=== PATIENT | male | born 1965 | race Caucasian/White ===

== ENCOUNTER 2022-05-17 08:24 | Emergency (ER) | payer OTHER, SELFPAY ==
[2022-05-17 08:39] VITALS: BP 105/93; PULSE 84; RESP 20; TEMP 36.6; O2SAT 100
--- NOTE | 2022-05-17 09:04 | ED.URI ---
HPI - URI/Sore Throat General Chief Complaint: Upper Respiratory Infection Stated Complaint: Headache,Shortness of Breath Time Seen by Provider: 05/17/22 08:50 Source: patient Mode of arrival: ambulatory Limitations: no limitations History of Present Illness HPI Narrative: Patient presents today complaining of 2-day history of cough, headache, scratchy throat, rhinorrhea. Symptoms began after he returned home from an [facility] cruise. His has tested positive for COVID-19, as have several people on his cruise. He tested positive for COVID-19 2 days ago at home, but needed to come in today for documentation for work. States most of his symptoms have resolved, but his headache has persisted. Denies chest pain or shortness of breath. He has been taking Excedrin and drinking a lot of coffee for his headache without relief. He is a smoker. He has had his COVID-19 vaccines. Related Data Home Medications Medication Instructions Recorded Confirmed No Home Medications 05/17/22 05/17/22 Allergies Allergy/AdvReac Type Severity Reaction Status Date / Time No Known Allergies Allergy Verified 05/17/22 08:56 Review of Systems Review of Systems: CONSTITUTIONAL: Denies body aches, fever, chills, or sweats. EYES: Denies visual changes, redness, or discharge. ENT: Denies rhinorrhea, congestion, sore throat, or otalgia. CARDIOVASCULAR: Denies chest pain, palpitations, or edema. RESPIRATORY: Denies cough or dyspnea. GASTROINTESTINAL: Denies abdominal pain, nausea, vomiting, or diarrhea. GENITOURINARY: Denies dysuria or hematuria. SKIN: Denies rash, itching, or wounds. MUSCULOSKELETAL: Denies back pain, joint pain, or myalgia. NEUROLOGIC: Denies numbness, tingling, or weakness.+ Headache PSYCH: Denies depression or anxiety. [facility] Family History Family History Mother Hypertension Father Family history of lymphoma, Onset Age: 39 Social History Social History Smoking status: Current every day smoker Alcohol intake: never Comments At time of signature, I have reviewed and agree with nursing past medical, surgical, social and family history unless otherwise noted. Please see nursing chart for further information. There is no relevant family history pertinent to the presenting complaint Exam Narrative: GENERAL: Well-appearing, well-nourished, and in no acute distress. HEAD: Normocephalic, atraumatic. EYES: EOMI. No redness or drainage. Conjunctivae normal. ENT: Mucous membranes pink and moist. Nares clear. No rhinorrhea. TMs normal bilaterally. Throat normal. Uvula midline. NECK: Normal AROM. Supple. No lymphadenopathy. CHEST: No respiratory distress. Clear to auscultation. HEART: Regular rate and rhythm. No murmur appreciated. Normal peripheral pulses. EXTREMITIES: Normal range of motion. No edema. SKIN: Warm, dry, no rash. Capillary refill normal. Normal skin turgor. NEURO: No focal deficits. Alert and oriented x3. Gait steady. PSYCH: Normal affect. No signs of depression or anxiety. Course Course Level of Care: Express Care Visit Vital Signs Vital signs: Vital Signs Temperature 97.8 F 05/17/22 08:39 Pulse Rate 84 05/17/22 08:39 Respiratory Rate 20 05/17/22 08:39 Blood Pressure 105/93 H 05/17/22 08:39 Pulse Oximetry 100 05/17/22 08:39 Oxygen Delivery Room Air 05/17/22 08:39 Temperature 97.8 F 05/17/22 08:39 Pulse Rate 84 05/17/22 08:39 Respiratory Rate 20 05/17/22 08:39 Blood Pressure 105/93 H 05/17/22 08:39 Pulse Oximetry 100 05/17/22 08:39 Oxygen Delivery Room Air 05/17/22 08:39 Reviewed MDM - URI/Sore Throat Differential Diagnosis Differential diagnosis: Likely upper respiratory infection, viral infection, pharyngitis and other (COVID-19) Critical Care Time Critical Care Time Critical Care Time: No Discharge Plan Discha
== END 2022-05-17 09:12 | disposition home or self-care (01) ==
PROVIDERS: Emergency Provider Nurse Practitioner
DX: U07.1 COVID-19 (principal); F17.200 Nicotine dependence, unspecified, uncomplicated
CPT/HCPCS: 99202; G0463

== ENCOUNTER 2022-11-12 08:20 | Emergency (ER) | payer OTHER, SELFPAY ==
[2022-11-12 08:31] VITALS: BP 99/87; PULSE 97; RESP 16; TEMP 36.4; O2SAT 100
--- NOTE | 2022-11-12 08:48 | ED.URI ---
HPI - URI/Sore Throat General Chief Complaint: Upper Respiratory Infection Stated Complaint: villagomez/body aches Time Seen by Provider: 11/12/22 08:48 Source: patient and RN notes reviewed Mode of arrival: ambulatory Limitations: no limitations History of Present Illness HPI Narrative: 57-year-old male presented for complaint of headache and body aches, onset yesterday morning. Endorses temperature up to 100 this morning. He took Excedrin migraine for symptoms. He endorses influenza going around his work. He currently denies cough, shortness of breath, wheezing, sore throat, sinus congestion, nausea, vomiting, diarrhea. MD elicited complaint: cough Related Data Home Medications Medication Instructions Recorded Confirmed No Home Medications 05/17/22 11/12/22 Allergies Allergy/AdvReac Type Severity Reaction Status Date / Time No Known Allergies Allergy Verified 11/12/22 08:45 Review of Systems Review of Systems: Per HPI [facility] Family History Family History Mother Hypertension Father Family history of lymphoma, Onset Age: 39 Social History Social History Smoking status: Current every day smoker Alcohol intake: never Exam Narrative: GENERAL: Ill-appearing, nontoxic EYES: PERRLA, conjunctivae clear ENT: Mucous membranes moist. TMs pearly tafoya with dull light reflex bilaterally; no tragal tenderness. Oropharynx erythematous without lesions or exudate CHEST: Clear to auscultation, breath sounds equal. No wheezing, rhonchi, rales, or stridor. No respiratory distress, speaks in full sentences. HEART: Regular rate and rhythm. No murmur heard. SKIN: Warm, dry, no rash. NEURO: Alert and oriented x3. PSYCH: Normal mood and affect Course Course Emergency Course: Patient is aware of diagnosis, understands and agrees to treatment plan. Anticipatory guidance given. Patient agrees to follow-up as directed and is aware of reasons to seek care at the emergency department. Portions of this record may have been created with voice recognition software Level of Care: Express Care Visit Vital Signs Vital signs: Vital Signs Temperature 97.5 F L 11/12/22 08:31 Pulse Rate 97 11/12/22 08:31 Respiratory Rate 16 11/12/22 08:31 Blood Pressure 99/87 L 11/12/22 08:31 Pulse Oximetry 100 11/12/22 08:31 Oxygen Delivery Room Air 11/12/22 08:31 Temperature 97.5 F L 11/12/22 08:31 Pulse Rate 97 11/12/22 08:31 Respiratory Rate 16 11/12/22 08:31 Blood Pressure 99/87 L 11/12/22 08:31 Pulse Oximetry 100 11/12/22 08:31 Oxygen Delivery Room Air 11/12/22 08:31 reviewed MDM - URI/Sore Throat MDM Narrative Medical decision making narrative: COVID and flu negative. Results reviewed with patient. Advised supportive measures and signs/symptoms to go to the ER. Pt is appropriate for outpt treatment and f/u. Differential Diagnosis Differential diagnosis: Likely upper respiratory infection, sinusitis and viral infection Lab Data Labs: Influenza A Screen Negative Reference Range: Negative Influenza B Screen Negative Reference Range: Negative Discharge Plan Discharge Clinical Impression: Viral infection Patient Disposition: Home, Self-Care Condition: Stable Instructions: Viral Syndrome (ED) Additional Instructions: Your rapid covid test was negative today. It may be too early to detect the virus, therefore we recommend retesting at home in 1-2 days Continue to follow general precautions: frequent handwashing, wear a mask, isolate/social distance, and avoid crowds if you have a fever. You must be fever free for 24 hours without the use of fever reducing medication (Tylenol/ibuprofen) before returning to work/school/crowds. Rest. Drink
== END 2022-11-12 09:23 | disposition home or self-care (01) ==
PROVIDERS: Emergency Provider Nurse Practitioner Family
DX: B34.9 Viral infection, unspecified (principal); R51.9 Headache, unspecified; F17.200 Nicotine dependence, unspecified, uncomplicated; Z20.822 Contact with and (suspected) exposure to COVID-19
CPT/HCPCS: 87426; 87804; 99213; C9803; G0463

== ENCOUNTER 2023-03-31 12:37 | Emergency (ER) | payer OTHER, SELFPAY ==
--- NOTE | ~2023-03-31 | XR_ITS ---
XR knee RT min 4V 03/31/2023 13:38 Indication: Right knee pain after twisting injury Procedure: 4 views right knee Comparison: No prior studies for comparison. Findings: There is mild osteoarthritis of the right knee. No acute fracture or traumatic malalignment . No significant joint effusion. There is a healed proximal tibial metaphyseal fracture with dorsal a ngulation and exuberant callus formation. There is a healed proximal fibular fracture. Impression: 1: No acute fracture. Reviewed, dictated and finalized at location B. Impression: 1: No acute fracture.
--- NOTE | 2023-03-31 12:45 | ED.LOWEXIN ---
HPI - Extremity Injury (Lower) General Chief Complaint: Extremity Injury, Lower Stated Complaint: Right Knee Pain Time Seen by Provider: 03/31/23 13:18 Source: patient and RN notes reviewed Mode of arrival: ambulatory Limitations: no limitations History of Present Illness HPI Narrative: 57-year-old male presents concern for right knee pain. Reports Wednesday he slipped and his knee twisted. He reports he has been using ibuprofen and a knee brace, using eyes. Reports the knee gives out sometimes, and certain motions make the pain worse such as walking down hill. He reports history of tib-fib fracture in the right leg in 2010. MD complaint: knee injury Related Data Home Medications Medication Instructions Recorded Confirmed No Home Medications 03/31/23 03/31/23 Allergies Allergy/AdvReac Type Severity Reaction Status Date / Time No Known Allergies Allergy Verified 03/31/23 13:08 Review of Systems Review of Systems: CONSTITUTIONAL: Denies malaise, chills, sweats, or fever. SKIN: Denies rash or itching, open skin, laceration, abrasion, redness, warmth, swelling. MUSCULOSKELETAL: Reports right knee pain NEUROLOGIC: Denies numbness, weakness All systems reviewed & are unremarkable except as noted in HPI and below PMFSH Family History Family History Mother Hypertension Father Family history of lymphoma, Onset Age: 39 Social History Social History Smoking status: Current every day smoker Alcohol intake: never Comments At time of signature, agree with nursing past medical, surgical, social and family history. There is no relevant family history pertinent to the presenting complaint Exam Narrative: GENERAL: Well-appearing, well-nourished, and in no acute distress. HEAD: Normocephalic, atraumatic. EYES: PERRLA, conjunctivae clear NECK: Supple. CHEST: Speaks in full sentences. No respiratory distress. HEART: Regular rate and rhythm. Normal and equal peripheral pulses. EXTREMITIES: Right knee has normal sensation, grossly normal range of motion. Mild edema without erythema, warmth, ecchymosis. Normal sensation with sensitivity to light touch and pain. No point tenderness. No open wounds, no skin tenting, no devitalized tissue or atrophy, no trophic changes, no obvious deformity, alignment normal, nearby joints and structures intact. Distal pulses palpable and equal bilaterally, skin warm, dry, pink. Capillary refill less than 3 seconds. Lever test negative SKIN: Warm, dry, no rash. NEURO: Alert and oriented x3. PSYCH: Normal mood and affect Course Course Emergency Course: Patient is aware of diagnosis, understands and agrees to treatment plan. Anticipatory guidance given. Patient agrees to follow-up as directed and is aware of reasons to seek care at the emergency department. Portions of this record may have been created with voice recognition software Level of Care: Express Care Visit Vital Signs Vital signs: Reviewed. MDM - Extremity Injury (Lower) MDM Narrative Medical decision making narrative: Patients injury and pain is consistent with musculoskeletal etiology. No signs of neurological or vascular compromise on exam. Compartments and tissues are soft without signs of compartment syndrome. Pain is felt appropriate for further evaluation on an outpatient basis. Imaging Data My impression: Images reviewed, interpreted by radiologist, agree, see report. Radiologist's impression: XR knee RT min 4V 03/31/2023 13:38 Indication: Right knee pain after twisting injury Procedure: 4 views right knee Comparison: No prior studies for comparison. Findings: There is mild osteoarthritis of the right knee. No acute fracture or traumatic malalignment. No significant joint effusion. There is a healed proximal tibial metaphyseal fracture with dorsal angulation and exuberant callus
[2023-03-31 12:55] VITALS: BP 153/114; PULSE 108; RESP 16; TEMP 36.9; O2SAT 98
[2023-03-31 14:02] VITALS: BP 110/66; PULSE 81
== END 2023-03-31 14:02 | disposition home or self-care (01) ==
PROVIDERS: Emergency Provider Nurse Practitioner
DX: S83.91XA Sprain of unspecified site of right knee, initial encounter (principal); X50.9XXA Other and unspecified overexertion or strenuous movements or postures, initial encounter; F17.200 Nicotine dependence, unspecified, uncomplicated
CPT/HCPCS: 73564; 99213; G0463

== ENCOUNTER 2023-04-26 10:48 | Outpatient (CLI) | payer OTHER, SELFPAY ==
--- NOTE | ~2023-04-26 | MR_ITS ---
MRI of the right knee Clinical history: Internal arrangement Technique: Coronal proton density and proton density-weighted images, sagittal proton-density and T2 fat-sat images, and axial proton-density fat-saturated images were acquired. Findings: Anterior and posterior cruciate ligaments are intact. Medial collateral ligament and the la teral collateral ligament complex are intact. Popliteus tendon is intact. Lateral meniscus is intact, without evidence of tear. There is horizontal tearing of the posterior ho rn and body of the medial meniscus. There is extensive grade IV chondromalacia the medial femoral condyle. There is mild diffuse chondral thinning of the lateral compartment. There is moderate diffuse chondral thinning of the femoral troc hlea. There is high-grade chondromalacia patella extensively along lateral patellar facet. Tricompart mental osteophytes are present, most prominent at the lateral joint line. Possible healed fracture de formity at the proximal tibial shaft. Extensor mechanism is intact. Small to moderate joint effusion is present. No Olvera's cyst. Suggestio n of small ganglion cyst with surrounding soft tissue edema near the proximal most portion of the lat eral gastrocnemius muscle belly. Impression: Horizontal tear of the posterior horn and body of the medial meniscus. Tricompartmental osteoarthritis, as detailed above. Small to moderate joint effusion. Probable small ganglion cyst with mild surrounding soft tissue edema adjacent to the proximal most po rtion of the lateral gastrocnemius muscle belly. Reviewed, dictated and finalized at [facility]. Impression: Horizontal tear of the posterior horn and body of the medial meniscus. Tricompartmental osteoarthritis, as detailed above. Small to moderate joint effusion. Probable small ganglion cyst with mild surrounding soft tissue edema adjacent t o the proximal most portion of the lateral gastrocnemius muscle belly.
== END 2023-04-26 10:49 ==
LOC: GOSHIMG 10:49
PROVIDERS: PCP Physician Assistant; Visit Provider Orthopaedic Surgery
DX: M23.91 Unspecified internal derangement of right knee (principal); S83.241A Other tear of medial meniscus, current injury, right knee, initial encounter; M17.11 Unilateral primary osteoarthritis, right knee; M25.461 Effusion, right knee
CPT/HCPCS: 73721

== ENCOUNTER 2023-06-15 10:26 | Outpatient (CLI) | payer OTHER, SELFPAY ==
--- NOTE | 2023-06-15 10:38 | ECG_ITS ---
Measurements Intervals [place] Rate: 75 P: 56 OK: 168 QRS: 46 QRSD: 90 T: 49 QT: 357 QTc: 400 Interpretive Statements SINUS RHYTHM NORMAL ELECTROCARDIOGRAM NO PREVIOUS ECG AVAILABLE FOR COMPARISON Electronically Signed On 06-15-2023 13:24:21 CDT by Marcelo Tadeo M.D.
== END 2023-06-15 10:27 | disposition home or self-care (01) ==
LOC: ANHSURGERY 10:31
PROVIDERS: PCP Physician Assistant; Visit Provider Orthopaedic Surgery
DX: Z72.0 Tobacco use (principal)
CPT/HCPCS: 93005

== ENCOUNTER 2023-06-17 00:16 | Day surgery (SDC) | payer OTHER, SELFPAY ==
[2023-06-09 13:30] VITALS: BMI 24.4
--- NOTE | 2023-06-09 14:08 | PC.NURSE ---
Report to the Outpatient Waiting Room, entrance under the green pavilion located off [facility], at time _0830_ on date __06/17/23 . Planned Procedure Time: _1030__. Time changes happen often and if your time is changed the preop area will call you the afternoon before. - You and your MAX OF 2 visitors will be asked to self-screen and do not enter if you have any COVID symptoms. - A mask is optional within the hospital at this time. Patients may have clear liquids (water, carbonated beverages, clear teas, apple juice) BLACK COFFEE ONLY until 3 hours prior to surgery with a maximum of 20 ounces. - No food from midnight until time of surgery Take the following medications with a SIP of water the morning of surgery: __N/A DO NOT STOP ANY OF YOUR OTHER PRESCRIPTION MEDICATIONS PRIOR TO SURGERY ?EXCEPT THE FOLLOWING Medications to discontinue per physician ___STOP ALEVE 06/10/23 Date to take last dose Please no make-up, nail belarusian, hairspray, perfume, deodorant, or body powder the day of surgery. No jewelry (including any body piercings) or valuables the day of surgery, leave them at home. Please take a shower or bath the night before, or the morning of, surgery with an antibacterial soap. Wear comfortable, loose fitting clothing. - Jewelry must be removed prior to entering the operating room. Rings and piercings that are not removed may be cut off. - The hospital will not accept responsibility for valuables. - Please leave all valuables, including medications, at home the day of surgery. If you are going home after surgery, a licensed driver license agent must drive you home. - NO public transportation without another adult if you receive anesthesia. - We recommend that an adult stay with you for 24 hours following discharge. - We also recommend that you do not drive, make important decision, drink alcoholic beverages, or take any drugs that were not prescribed by your health care provider for at least 24 hours after your discharge time. Follow any additional instructions given to you from your surgeon. If you or anyone in your household have experienced Covid symptoms in the past week, please notify your surgeon or the nurse liaison at the phone number below for possible testing. Telephone instructions given to _SUSY__and asked if any additional questions and then verbalized understanding. Patient advised to call surgeon office or pre surgery nurse liaison [phone] if any additional questions.
[2023-06-17] VITALS (7 sets, daily range): BP systolic 100–139; BP diastolic 62–96; PULSE 53–77; RESP 16–20; TEMP 36.3–36.4; O2SAT 97–100
[2023-06-17] MEDS: ACETAMINOPHEN 500 MG TABLET 1000 MG PO (09:00)
[2023-06-17] MEDS: KETOROLAC 15 MG/ML VIAL (*BKC) IV PUSH ×2 (09:34→09:36)
--- NOTE | 2023-06-17 10:05 | P.PNAN_ITS ---
Anes - Initial Pre Proc Eval Procedure: Operation Date: 06/17/23 10:30 Proposed Procedures p Right Knee Arthroscopic Partial Medial Meniscectomy - Antonio Vaughn MD Date/Time: 06/17/23 10:05 Surgeon: Antonio Vaughn MD Pre Op Diagnosis: Rt Knee Medial Meniscus Tear Patient Data Age: 58 Gender: M Height: 1.75 m Weight: 71.4 kg Last Vital Signs Temp 36.4 C 06/17/23 08:47 Pulse 77 06/17/23 08:47 Resp 16 06/17/23 08:47 BP 111/96 H 06/17/23 08:47 Pulse Ox 100 06/17/23 08:47 O2 Del Method Room Air 06/17/23 08:47 Allergies Allergy/AdvReac Type Severity Reaction Status Date / Time No Known Allergies Allergy Verified 06/17/23 08:56 Home Medications Medication Instructions Recorded Confirmed Type diphenhydramine 25 1 tablet PO HS PRN Pain 06/09/23 06/17/23 History mg-acetaminophen 500 mg tablet (Tylenol PM Extra Strength) naproxen sodium 220 mg capsule 220 mg PO BID PRN Pain 06/09/23 06/17/23 History Patient hx anesthesia problems: none Family hx anesthesia problems: none Results Review: All pre-operative results and documents have been reviewed as part of the pre- operative evaluation. [facility] Past Medical History Medical History History of stress test Surgical History Surgical History History of hand surgery History of hip surgery Left hip stabilizer Family History Family History Mother Hypertension Father Family history of lymphoma, Onset Age: 39 Social History Social History Smoking packs per day: 1 Smoking cigarettes per day: 20.0 Years smoked: 40 Smoking pack-years: 40.00 Smoking status: Current every day smoker Tobacco type: cigarettes Second hand tobacco smoke exposure: No Alcohol intake: former Alcohol use details: QUIT 2007 Substance use: never Substance use type: does not use Lack of Transportation: No Lack of Food: Never True Current Housing: I Have Housing Concerned About Future Housing: No Difficulty Paying Gas/Electric Bills: No Difficulty Paying for Meds: No Currently Unemployed: YES Education: Associate Degree Difficulty w/ Childcare or Family Care: No Living arrangements: with family Spiritual care concerns: No Anes - Eval Final PreProcedure Day of Procedure 06/17/23 10:05 Patient weight: normal Heart: regular rate and rhythm Lungs: decreased breath sounds Airway: Mallampati scale class II Neurological: alert and oriented Last oral intake: >/= 8 hours ASA classification: III Emergent: no Anesthetic plan: proceed Anesthesia type and monitoring: general LMA and standard monitoring Results Review: All pre-operative results and documents have been reviewed as part of the pre- operative evaluation. Informed Consent: The patient's anesthetic plan and its attendant risks and benefits were discussed with the patient/family/POA. Questions were solicited and answers provided to the satisfaction of the patient/family/POA.
--- NOTE | 2023-06-17 10:09 | WPDHPUPDATE1 ---
History and Physical Update Update Date/Time: 06/17/23 10:09 History and Physical has been reviewed, including an updated exam of the patient. There are NO changes in the patient's condition. Risks, benefits, and alternatives have been discussed and questions answered. Patient agrees to proceed with procedure.
[2023-06-17] MEDS: ceFAZolin 2 GM/D5W 50 ML 2 GM/50 ML BAG IVPB (10:24)
[2023-06-17] MEDS: BUPIVACAINE/EPINEPHRINE 0.25% 50 ML VIAL 20 ML INFILTRATE (11:32)
[2023-06-17] MEDS: LACTATED RINGERS 1,000 ML 30 ML IV CONT (11:44)
[2023-06-17] MEDS: fentaNYL CITRATE INJ (*CRX) 100 MCG/2 ML VIAL 25 MCG IV PUSH ×4 (11:54→12:06)
--- NOTE | 2023-06-17 16:05 | P.OP_ITS ---
Procedure Note - Detailed Date of Procedure 06/17/23 Pre-op Diagnosis Rt Knee Medial Meniscus Tear Post-op Diagnosis Same Procedure Performed Arthroscopic partial medial meniscectomy, right knee. Surgeon Antonio Vaughn MD [employer] Sherin Booker PA-C Anesthesia General Findings Extensive tear of the medial meniscus. Complex pattern. Medial femur chondromalacia grade 3, medial tibia grade 1. Lateral femur chondromalacia grade 1, lateral tibia grade 1. Patellar grade 1, trochlea grade 3. Description of Procedure The patient was identified and the surgical site confirmed and signed in the preoperative holding area. Antibiotics were started per protocol. He was brought to the operative room and transferred to the OR table. A general anesthetic was administered. Supine position with the operative lower extremity position in the leg miller after placement of a well padded tourniquet. The leg support was lowered and the contralateral limb was supported with a soft bolster. The knee was prepped and draped in the usual sterile fashion. A time-out was performed. The portal sites were marked and infiltrated with 0.5% Marcaine 20 mL. The limb was exsanguinated and the tourniquet inflated to 300 mL Hg. Standard inferolater al and inferomedial portals were established. Inflow was obtained with the saline pump. The camera was introduced. Diagnostic inspection of the joint was accomplished. The meniscus was debrided with the arthroscopic shaver and punches until stable. The radiofrequency probe was also used for further d?bridement. The arthroscopic instruments were removed. The tourniquet released and wounds closed with subcutaneous 4-0 Monocryl absorbable suture. Steri strips and a sterile dressing were applied. A light elastic wrap was placed. The patient was extubated and brought to the recovery room in stable condition. Estimated Blood Loss -20.0 Drains No Pathology None sent Complications No immediate complications Condition Stable Disposition PACU [facility] Billing Surgery - Charge Forward: Surgery Billing
== END 2023-06-17 13:00 | disposition home or self-care (01) ==
PROVIDERS: PCP Physician Assistant; Visit Provider Orthopaedic Surgery
PROC: (CPT 29870; principal; 2023-06-17 10:30)
DX: S83.231A Complex tear of medial meniscus, current injury, right knee, initial encounter (principal); W17.89XA Other fall from one level to another, initial encounter; M22.41 Chondromalacia patellae, right knee; F17.210 Nicotine dependence, cigarettes, uncomplicated
CPT/HCPCS: 29881; A9270; J0690; J1100; J1885; J2250; J2405; J2704; J3010; J7120

== ENCOUNTER 2024-06-29 10:45 | Emergency (ER) | payer OTHER, SELFPAY ==
--- NOTE | 2024-06-29 10:57 | ED.URI ---
HPI - URI/Sore Throat General Chief Complaint: Upper Respiratory Infection Stated Complaint: Sinus Time Seen by Provider: 06/29/24 11:26 Source: patient, RN notes reviewed and old records reviewed Mode of arrival: ambulatory Limitations: no limitations History of Present Illness HPI Narrative: 59 year male presents to the [facility] with concerns for COVID-19. The patient reports that he tested positive on Wednesday. Symptoms on Wednesday when he tested positive, symptoms include headache and sinus congestion. Treatments prior to arrival: none Related Data Home Medications Medication Instructions Recorded Confirmed No Home Medications 06/29/24 06/29/24 Allergies Allergy/AdvReac Type Severity Reaction Status Date / Time No Known Allergies Allergy Verified 06/29/24 10:52 Review of Systems Review of Systems: All systems reviewed & are unremarkable except as noted in HPI and below Constitutional: Constitutional: Reports no additional constitutional complaints Eyes: Eyes: Reports no additional eye complaints ENT: Reports as per HPI Cardiovascular: Cardiovascular: Reports no additional cardiovascular complaints, Denies chest pain and Denies dyspnea Respiratory: Respiratory: Reports no additional respiratory complaints, Denies chest congestion, Denies cough and Denies dyspnea Gastrointestinal: Gastrointestinal: Reports no additional gastrointestinal complaints, Denies abdominal pain, Denies nausea and Denies vomiting Musculoskeletal: Musculoskeletal: Reports no additional musculoskeletal complaints Integumentary/Breasts: Skin/Breast: Reports system reviewed and no additional complaints, except as docu Neurologic: Reports system reviewed and no additional complaints, except as documented Psychiatric: Psychiatric: Reports no additional psychiatric complaints Allergic/Immunologic: Allergic/Immunologic: Reports no additional allergic/immunologic complaints PMFSH Past Medical History Medical History History of stress test Surgical History Surgical History History of hand surgery History of hip surgery Left hip stabilizer History of meniscectomy of right knee (~06/17/23) partial medial Family History Family History Mother Hypertension Father Family history of lymphoma, Onset Age: 39 Social History Social History Smoking packs per day: 1 Smoking cigarettes per day: 20.0 Years smoked: 40 Smoking pack-years: 40.00 Smoking status: Current every day smoker Tobacco type: cigarettes Second hand tobacco smoke exposure: No Alcohol intake: former Alcohol use details: QUIT 2007 Substance use: never Substance use type: does not use Lack of Transportation: No Lack of Food: Never True Current Housing: I Have Housing Concerned About Future Housing: No Difficulty Paying Gas/Electric Bills: No Difficulty Paying for Meds: No Currently Unemployed: YES Education: Associate Degree Difficulty w/ Childcare or Family Care: No Living arrangements: with family Spiritual care concerns: No Comments At the time of my signature, I reviewed and agree with the nursing past medical, surgical, social, and family history. There is no relevant family history pertinent to the patient complaint. Exam Const: General: cooperative, healthy appearing, comfortable, no acute distress, well developed, alert and well nourished Nutritional Appearance: well nourished Orientation/consciousness: patient oriented x3 Limitations: no limitations HENMT: Head: normal to inspection Ears: hearing grossly normal bilaterally, external ears normal, EAC's normal, mastoids normal and no periauricular adenopathy Face/Nose/Sinus: Normal external nose present, Normal nares present, Normal nasal mu
[2024-06-29 10:59] VITALS: BP 105/73; PULSE 65; RESP 20; TEMP 36.6; O2SAT 100
[2024-06-29 11:31] LABS: EDINFLUASCREEN Negative; EDINFLUBSCREEN Negative
== END 2024-06-29 11:38 | disposition home or self-care (01) ==
PROVIDERS: Emergency Provider Nurse Practitioner; PCP Physician Assistant
DX: Z20.822 Contact with and (suspected) exposure to COVID-19 (principal); F17.210 Nicotine dependence, cigarettes, uncomplicated
CPT/HCPCS: 87426; 87804; 99213; G0463